=== PATIENT | female | born 1975 | race Caucasian/White ===

== ENCOUNTER 2018-07-21 16:04 | Inpatient (IN) | payer OTHER ==
[~2018-07-21] VITALS: Ht 167.6 cm; Wt 107.5 kg
--- NOTE | ~2018-07-21 | EKG ---
[address] [address] ELECTROCARDIOGRAM REPORT Name: BHARGAVIJIM ALCARAZGERMAN Room #: 219-P ADM IN M.R.#: [id number] Admission: 07/21/18 Attend Phys: Marshall Gomez MD, Discharge: Date of : 75 Report #: [id number] THIS REPORT FOR: //name// [facility] Test Date: 2018-07-24 Test Time: 11:04:24 Pat Name: GERMAN GARCIA Department: Room: 219 P Gender: F Field Talent Qualification Specialist: Yonis TRIMBLE : 1975 Requested By: Marshall Gomez Order Number: [id number] MD: Domenic Salazar Measurements Intervals [place] Rate: 69 P: 45 OR: 164 QRS: 3 QRSD: 90 T: 11 QT: 398 QTc: 427 Interpretive Statements Sinus rhythm Low voltage, precordial leads Borderline T abnormalities, anterior leads No previous ECG available for comparison Electronically Signed On 07-24-2018 17:47:39 CDT by Domenic Salazar [email or web address] <ELECTRONICALLY SIGNED> By: Domenic Salazar MD 07/24/18 1747 03 Domenic Salazar MD /RONNIE
--- NOTE | ~2018-07-21 | HC ---
[facility] [place] [address] CONSULTATION Name: GERMAN GARCIA Room #: 219-P ADM IN M.R.#: [id number] Admission: 07/21/18 Attend Phys: Marshall Gomez MD, Discharge: Date of : 75 Report #: [id number] THIS REPORT FOR: //name// CC: Kemal Gomez MD [facility] HISTORY OF PRESENT ILLNESS: The patient is a 42-year-old female I have been asked to see for further evaluation of her history of colitis. She is unable to give me much history in a detailed fashion secondary to poor recollection, although she was seen by my partner, Dr. Johan Brenner, and diagnosed with microscopic colitis in 2004 or 2005. She eventually was evaluated in [place] and treated for what sounds like ulcerative colitis versus Crohn disease. She has had significant rectal bleeding and diarrhea over a long period of time without followup. She presents with 2 weeks of anterior chest pain radiating to left neck, which is worse with exertion. She has continual pain, but worsening of her pain with exercise or exertion associated with shortness of breath as well. Her medical history is otherwise detailed in the chart. MEDICATIONS: Include gabapentin, fluoxetine, diclofenac, buspirone, trazodone, atorvastatin, amitriptyline, pantoprazole, oxycodone and lorazepam. FAMILY HISTORY: Noncontributory. SOCIAL HISTORY: She denies significant alcohol or tobacco consumption. REVIEW OF SYSTEMS: Negative for weight loss, weakness or fatigue. She denies head, eyes, ears, nose or throat complaints. She denies chest pain, chest palpitation, chest pressure, cough, shortness of breath, wheezing, genitourinary, musculoskeletal or neuropsychiatric complaints. Other medical history can be obtained from the chart, but includes gastroesophageal reflux as well. She has also had familial hypercholesterolemia as detailed as well as this nonspecific history of inflammatory bowel disease labeled microscopic colitis by my partner, Dr. Johan Brenner, but otherwise undifferentiated without records. That was a remote diagnosis. PHYSICAL EXAMINATION: VITAL SIGNS: The patient is afebrile. Vital signs stable. GENERAL: Obese. HEENT: Nonicteric. NECK: No JVD, thyromegaly or bruits. CARDIOVASCULAR: Regular. LUNGS: Clear. ABDOMEN: Soft, nondistended, nontender, normoactive bowel sounds, no hepatosplenomegaly. No stigmata of chronic liver disease. No abnormal masses or bruits. [address] [address] CONSULTATION Name: GERMAN GARCIA Room #: 219-P [facility] IN M.R.#: [id number] Admission: 07/21/18 Attend Phys: Marshall Gomez MD, Discharge: Date of : 75 Report #: [id number] EXTREMITIES: No clubbing, cyanosis or edema. NEUROLOGIC: Grossly intact. PERTINENT LABORATORY DATA: Include hemoglobin 9.7, MCV 65, RDW of 17.1, platelet count 331. Her chemistry is notable for sodium 135, creatinine 1.1. Normal liver tests. ASSESSMENT AND PLAN: In summary, the patient has evidence of significant microcytic iron deficiency anemia. She has had report of multiple diarrheal bowel movements, mostly with blood suggesting ulcerative colitis versus Crohn disease. Microscopic colitis does not present with hematochezia. She has been unmanaged over the course of the last several years and could have significant ulcerative colitis or Crohn's; however, her exam is benign. I would plan on a thorough cardiac evaluation for unstable angina and then elective evaluation with EGD and colonoscopy for atypical chest pain and a definitive differentiation of her colitis. Even with anticoagulation the superficial bleeding that occurs with colitis will not put her at risk for a dramatic upper or lower gastrointestinal bleed. We will monitor concurrently. At this point, I would cover her with proton pump inhibitor therapy, await Cardiology evaluation with heart catheterization on Tuesday and proceed with elective workup based on those findings. Again, I appreciate the opportunity to participate in the care of this nice woman. <ELECTRONICALLY SIGNED> By: Ilya Burdick MD 07/23/18 0950 1120 1306 Ilya Burdick MD /nt
--- NOTE | ~2018-07-21 | CATHLAB ---
[facility] [address] [place] [address] INVASIVE PROCEDURE REPORT Name: GERMAN GARCIA Room #: 219-P ADM IN M.R.#: [id number] Admission: 07/21/18 Attend Phys: Marshall Gomez, Discharge: Date of : 75 Date of Service: 07/24/18 1003 Report #: [id number] THIS REPORT FOR: //name// APPROVED REPORT Study performed: 07/24/2018 07:32:18 Patient Details Patient Status: In-Patient Room #: The patient is a 42 year-old female Event Personnel Marshall Gomez Family Services Assistant, Hiren Grady RN RN, Siri Oh RN RN, Bryanna Garcia RTR, Gennaro Martell Roberta Monitor Procedures Performed Art Access - R femoral artery* Left Heart Cath w/or w/o Coronaries [id number] [facility] Aortogram Abdominal Peripheral Angio 293924 [address] Place w/wo Plasty Single RCA 925913 Hemostasis w/ Mynx 79546 Mod Sed Same Phys/QHP Ea 196681 Indication Chest pain Procedure Narrative The Right Groin^ was infiltrated with 1% Lidocaine subcutaneous anesthesia. A PINNACLE 6FR Sheath #[id number] sheath was inserted into the RFA 6F^. Coronary angiography was performed using coronary diagnostic catheters. The right coronary system was accessed and visualized with a JR4 catheter. The left coronary system was accessed and visualized with a JL4 catheter. The left ventricle was accessed and visualized with a STR.PIG catheter. Left ventriculogram was performed in 30 degree projection. An aortogram of the abdominal aorta was performed. Closure device was deployed with a 6 Fr MYNXGRIP 6/7F #[id number]. The patient tolerated the procedure well and there were no complications associated with the procedure. There was no hematoma. Intraoperative Conscious Sedation Sedation start time: 818 Case end Time: 904 Fentanyl 100 mcg Versed 2 mg Fluoro Time: 6.13 minutes Dose: DAP 9785.00 cGycm2 1242 mGy [facility] [address] [place] [place] [address] INVASIVE PROCEDURE REPORT Name: GERMAN GARCIA Room #: 219-P [facility] IN M.R.#: [id number] Admission: 07/21/18 Attend Phys: Marshall Gomez, Discharge: Date of : 75 Date of Service: 07/24/18 1003 Report #: [id number] Contrast Type and Amount: Visipaque 215 ml Hemodynamics The aortic pressure is 118/75 mmHg with a mean of 47 mmHg. The left ventricular pressure is 129/10 mmHg with a mean of mmHg. The left ventricular end diastolic pressure is 15 mmHg. There was no gradient across the aortic valve upon pullback. PCI Technique Lesion Percutaneous coronary intervention was performed on the mid right coronary artery. A LAUNCHER 6FR MALORIE #[id number] Guide Catheter was used to engage the ostium. A Luge Wire .014 x 182CM #[id number] Interventional Guidewire was used to cross the lesion. BALLOON DILATION A Balloon catheter Sprinter OTW 2.5 x 12 #[id number] was inserted and inflated up to 8.00atm for 19seconds. Additional Inflation: 12.00atm for 21seconds. STENT DEPLOYMENT A drug-eluting stent RESOLUTE OLIMPIA OTW 2.75 X 12 #[id number] was inserted and inflated up to 16atm for 32seconds. Conclusion #1 successful PTCA stent of a 100% occluded mid RCA lesion. Recently occluded. Placement 2.75 x 12 resoluteOnyx stent to 3.0 mm in size yielding 0% residual GIRISH grade 3 flow #2 left main mildly disease giving rise to LAD and circumflex #3 the LAD is diffusely diseased throughout it extends to the apex and relatively small in caliber #4 circumflex OM is nondominant but large and well-preserved vessel. #5 normal left ventricular size and subtle inferior wall hypokinesis EF 50% #6 abdominal aorta is intact without evidence of aneurysm bilateral renal arteries and iliac system widely patent Recommendations and plan: Patient had good collateral filling to the PDA DIYA system. Able to preserve the inferior wall it appears. I expect improvement in the inferior wall after opening RCA. Dual antiplatelet therapy will be continued indefinitely. Patient has familial hypercholesterolemia syndrome. We'll need to aggressively [address] [address] INVASIVE PROCEDURE REPORT Name: GERMAN GARCIA Room #: 219-P ADM IN M.R.#: [id number] Admission: 07/21/18 Attend Phys: Marshall Gomez, Discharge: Date of : 75 Date of Service: 07/24/18 1003 Report #: [id number] treat this. Transfer to [facility] in stable condition. Follow post stent protocol <ELECTRONICALLY SIGNED> By: Marshall Gomez MD, FACC 07/24/183 02 02 Marshall Gomez MD, FACC /INF
--- NOTE | ~2018-07-21 | D ---
[facility] [place] [place] [address] DISCHARGE SUMMARY Name: GERMAN GARCIA Room #: 219-P [facility] IN M.R.#: [id number] Admission: 07/21/18 Attend Phys: Marshall Gomez MD, Discharge: 07/25/18 Date of : 75 Report #: [id number] THIS REPORT FOR: //name// CC: Kemal Barron MD [facility] COURSE: A 42-year-old female who was admitted for what sounds like a definite accelerating angina for 2 weeks. Relative severe onset of chest pain 2 weeks prior, seen in the office with an echo, which looked nearly normal, but also has a history of anemia due to some colitis, which has not been defined, but possibly ulcerative colitis or Crohn's disease. She was seen by GI prior to proceeding to the catheterization lab. She was deemed not at risk for significant bleed, but needed some GI followup. She has been lost to follow for Cardiology and GI because of living elsewhere, etc. 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 Subsequently taken to the catheterization lab, which revealed a totally occluded right coronary artery dominant vessel. This was fairly well collateralized by the left system. There was mild disease in the left system and the LV function was preserved with mild inferior wall lag. I was able to successfully dilate and stent this occluded vessel. A 2.75 x 12 Resolute drug-eluting stent was placed and post-dilated to 3.0 mm in size, yielding 0% residual and GIRISH grade 3 flow into an extensive PDA, DIYA and then an accessory PDA branch. She denies PND, orthopnea. There has been no recurrent pain. Creatinine is 1.1, potassium 3.7, H and H is 9.0 and 28.7. I have discussed the above with GI. We are waiting for their recommendations for any further workup or treatment. She was up and ambulating without any discomfort. I will utilize baby aspirin and prasugrel for antiplatelet therapy. In addition, rosuvastatin 40 mg with Zetia 10. She is a familial hypercholesterolemic. Her LDL was 350, untreated. She will continue her trazodone, Zanaflex, Zantac, oxycodone, gabapentin, Prozac, Pepto-Bismol p.r.n., and Elavil at night. Low fat and low sodium cholesterol diet. Regular aerobic activity. Cardiac rehab would be beneficial here. She is not hypertensive. We are going to probably put her on 25 of Toprol. I do not know if her pressure will tolerate losartan 25 mg and Toprol 25 mg. Followup will be 6 weeks. If we do not have significant drop in the lipids, she is a definite candidate for PCSK9 inhibitors. Injectables, diet, exercise and weight loss are also paramount for her. DISCHARGE DIAGNOSES: 1. Unstable angina with an occluded right coronary artery (successful PTCA stent of this occluded vessel, which was well collateralized). 2. Mild ischemic cardiomyopathy, but I expect the inferior wall to normalize, EF 50%. 3. Nonspecific colitis, possibly Crohn's or ulcerative colitis, Gastroenterology to follow up. 4. Chronic pain. 5. Anxiety, depressive disorder. [facility] [address] [place] [address] DISCHARGE SUMMARY Name: GERMAN GARCIA Room #: 219-P DIS IN M.R.#: [id number] Admission: 07/21/18 Attend Phys: Marshall Gomez MD, Discharge: 07/25/18 Date of : 75 Report #: [id number] 6. Familial hypercholesterolemia, presumably heterozygous. Thank you for asking me to assist in the care of this patient. Followup will also be arranged with the GI service. <ELECTRONICALLY SIGNED> By: Marshall Gomez MD, FACC 08/02/18 1257 0809 0912 Marshall Gomez MD, FACC /nt
--- NOTE | ~2018-07-21 | EKG ---
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
--- NOTE | ~2018-07-21 | EKG ---
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
--- NOTE | ~2018-07-21 | EKG ---
[address] [address] ELECTROCARDIOGRAM REPORT Name: BHARGAVIGERMAN ALCARAZ Room #: 219-P ADM IN M.R.#: [id number] Admission: 07/21/18 Attend Phys: Marshall Gomez MD, Discharge: Date of : 75 Report #: [id number] THIS REPORT FOR: //name// [facility] Test Date: 2018-07-21 Test Time: 17:52:11 Pat Name: GERMAN GARCIA Department: Room: 219 P Gender: F Channel Rebuilder: Marie BEGUM : 1975 Requested By: Marshall Gomez Order Number: [id number] MD: Domenic Salazar Measurements Intervals [place] Rate: 76 P: 26 [place]: 166 QRS: -1 QRSD: 88 T: 10 QT: 374 QTc: 421 Interpretive Statements Sinus rhythm Low voltage, precordial leads LVH by voltage Borderline T abnormalities, anterior leads No previous ECG available for comparison Electronically Signed On 07-24-2018 17:24:09 CDT by Domenic Salazar [email or web address] <ELECTRONICALLY SIGNED> By: Domenic Salazar MD 07/24/18 1724 175 175 Domenic Salazar MD /EPI
[2018-07-21 17:30] VITALS: BP 147/95
[2018-07-21 17:52] LABS: ABSOLUTE NEUTROPHILS 7.2 thou/uL (1.4-8.2); BASOPHILS 0.2 % (0.0-2.0); EOSINOPHILS 0.6 % (0.0-3.0); HEMATOCRIT 31.3 % (37.0-47.0); HEMOGLOBIN 9.7 gm/dL (12.0-15.0); MCH 20.3 pg (26.0-34.0); MCHC 31.1 g/dL (28.0-37.0); MCV 65.1 fL (80.0-100.0); MONOCYTES 5.9 % (1.0-8.0); PLATELET COUNT 331 thou/uL (150-400); POLYS 73.3 % (36.0-66.0); RBC 4.81 mil/uL (4.20-5.00); RDW 17.1 % (10.5-14.5); WBC 9.8 thou/uL (4.0-11.0)
[2018-07-21 18:08] LABS: ALBUMIN 3.6 g/dL (3.4-5.0); ANION GAP 9 mmol/L (7-16); BUN 7 mg/dL (7-18); CALCIUM 9.4 mg/dL (8.5-10.1); CHLORIDE 102 mmol/L (98-107); CO2 24 mmol/L (21-32); CREATININE 1.1 mg/dL (0.6-1.0); GLUCOSE 105 mg/dL (74-106); POTASSIUM 3.5 mmol/L (3.5-5.1); SGOT 14 U/L (15-37); SGPT 20 U/L (30-65); SODIUM 135 mmol/L (136-145); TOTAL BILIRUBIN 0.2 mg/dL (<0.1-1.0); TOTAL PROTEIN 8.3 g/dL (6.4-8.2); TROPONIN-I <0.06 ng/mL (<0.06)
[2018-07-21 18:25] LABS: ANISOCYTOSIS 2+
[2018-07-21 18:26] LABS: HYPOCHROMASIA 2+; MICROCYTES 2+
[2018-07-21 18:27] LABS: POLYCHROMASIA OCCASIONAL
[2018-07-21] MEDS ORDERED: TRAZODONE HCL100 MG (18:30)
[2018-07-21] MEDS ORDERED: AMITRIPTYLINE H75 M1 PO (19:52)
[2018-07-21] MEDS ORDERED: PRILOSEC 20 MG20 MG PO (19:53)
[2018-07-21] MEDS ORDERED: PEPTO-BISMOL1 TAB PO (19:54)
[2018-07-21 19:55] VITALS: BP 134/74
[2018-07-21] MEDS ORDERED: NEURONTIN600 MG PO (19:55)
[2018-07-21] MEDS ORDERED: NEURONTIN300 MG PO (19:56)
[2018-07-21] MEDS ORDERED: OXYCODONE HCL 55 MG PO (19:57)
[2018-07-21] MEDS ORDERED: BUSPIRONE HCL10 MG PO (19:59)
[2018-07-21] MEDS ORDERED: PROZAC20 MG PO (20:00)
[2018-07-21] MEDS ORDERED: VOLTAREN GEL 1100 G2 TOP (20:01)
[2018-07-22 04:55] VITALS: BP 107/59
[2018-07-22 07:53] VITALS: BP 120/68
[2018-07-22 11:51] VITALS: BP 112/60
[2018-07-22 16:30] VITALS: BP 134/89
[2018-07-22 20:05] VITALS: BP 109/71
[2018-07-23 04:55] VITALS: BP 103/61
[2018-07-23 07:32] VITALS: BP 98/53
[2018-07-23 10:51] VITALS: BP 122/77
[2018-07-23 16:03] VITALS: BP 90/50
[2018-07-23 19:14] VITALS: BP 134/80
[2018-07-23 23:40] VITALS: BP 127/81
[2018-07-24] VITALS (7 sets, daily range): BP systolic 103–137; BP diastolic 63–84
[2018-07-24 04:35] LABS: HEMATOCRIT 31.9 % (37.0-47.0); HEMOGLOBIN 9.5 gm/dL (12.0-15.0); MCH 19.6 pg (26.0-34.0); MCHC 29.7 g/dL (28.0-37.0); MCV 66.1 fL (80.0-100.0); RBC 4.82 mil/uL (4.20-5.00); RDW 16.9 % (10.5-14.5); WBC 8.6 thou/uL (4.0-11.0)
[2018-07-24 04:39] LABS: CALCIUM 9.3 mg/dL (8.5-10.1); CREATININE 1.1 mg/dL (0.6-1.0); POTASSIUM 3.9 mmol/L (3.5-5.1)
[2018-07-25] VITALS (10 sets, daily range): BP systolic 91–125; BP diastolic 49–88
[2018-07-25 04:29] LABS: CALCIUM 8.9 mg/dL (8.5-10.1); CREATININE 1.1 mg/dL (0.6-1.0); POTASSIUM 3.7 mmol/L (3.5-5.1); TROPONIN-I 0.3 ng/mL (<0.06)
[2018-07-25 04:38] LABS: HEMATOCRIT 28.7 % (37.0-47.0); MCH 20.6 pg (26.0-34.0); MCHC 31.4 g/dL (28.0-37.0); MCV 65.5 fL (80.0-100.0); RBC 4.39 mil/uL (4.20-5.00); RDW 17.1 % (10.5-14.5); WBC 8.6 thou/uL (4.0-11.0)
[2018-07-25 04:55] LABS: % SATURATION 5 % (20-39); IRON 16 ug/dL (50-170); TIBC 346 ug/dL (250-450)
[2018-07-25] MEDS ORDERED: METOPROLOL SUCC25 M1 PO (08:05)
[2018-07-25] MEDS ORDERED: EFFIENT10 MG PO (08:05)
[2018-07-25] MEDS ORDERED: COZAAR 50 MG TA50 M1 PO (08:05)
[2018-07-25] MEDS ORDERED: ZETIA10 MG PO (08:06)
[2018-07-25] MEDS ORDERED: CRESTOR40 MG PO (08:06)
[2018-07-25] MEDS ORDERED: ASPIR 8181 M1 PO (08:06)
[2018-07-25] MEDS ORDERED: COZAAR 25 MG TA25 M1 PO (08:09)
== END 2018-07-25 17:18 | disposition home or self-care (01) | DRG 246 ==
LOC: 2N 16:04 → ENTRNSPT 07-25 16:29 → 2N 07-25 17:18
PROVIDERS: Internal Medicine Cardiovascular Disease; Nurse Practitioner
DX: I20.0 Unstable angina (principal); I50.33 Acute on chronic diastolic (congestive) heart failure; K50.90 Crohn's disease, unspecified, without complications; K62.5 Hemorrhage of anus and rectum; K52.9 Noninfective gastroenteritis and colitis, unspecified; Z79.899 Other long term (current) drug therapy; E66.9 Obesity, unspecified; Z68.38 Body mass index [BMI] 38.0-38.9, adult; D50.9 Iron deficiency anemia, unspecified; I25.5 Ischemic cardiomyopathy; G89.29 Other chronic pain; F41.9 Anxiety disorder, unspecified; F32.9 Major depressive disorder, single episode, unspecified; E78.01 Familial hypercholesterolemia; K21.9 Gastro-esophageal reflux disease without esophagitis
CPT/HCPCS: 10081

== ENCOUNTER → 2019-12-14 | Outpatient (CLI) | payer BC ==
[~2019-12-14] MED LIST: AMITRIPTYLINE H75 M1 PO; ASPIR 8181 M1 PO; BUSPIRONE HCL10 MG PO; COZAAR 25 MG TA25 M1 PO; COZAAR 50 MG TA50 M1 PO; CRESTOR40 MG PO; EFFIENT10 MG PO; METOPROLOL SUCC25 M1 PO; NEURONTIN300 MG PO; NEURONTIN600 MG PO; OXYCODONE HCL 55 MG PO; PEPTO-BISMOL1 TAB PO; PRILOSEC 20 MG20 MG PO; PROZAC20 MG PO; TRAZODONE HCL100 MG; VOLTAREN GEL 1100 G2 TOP; ZETIA10 MG PO
== END ==
LOC: SJCVCIMAG 13:44
DX: I25.10 Atherosclerotic heart disease of native coronary artery without angina pectoris (principal); E78.5 Hyperlipidemia, unspecified; M19.90 Unspecified osteoarthritis, unspecified site; Z95.5 Presence of coronary angioplasty implant and graft